=== PATIENT | female | born 1980 | race Caucasian/White ===

== ENCOUNTER 2022-10-12 15:14 | Emergency (ER) | payer MEDICAID ==
[2022-10-12 15:53] LABS: BASOPHILS # (AUTO) 0.1 10^3/uL (0.0-0.1); BASOPHILS % (AUTO) 0.7 %; EOSINOPHILS # (AUTO) 0.3 10^3/uL (0.0-0.7); EOSINOPHILS % (AUTO) 2.2 %; HCT - HEMATOCRIT 36.6 % (37.0-47.0); HGB - HEMOGLOBIN 11.8 g/dL (12.0-16.0); LYMPHOCYTES # (AUTO) 3.7 10^3/uL (1.5-3.5); LYMPHOCYTES % (AUTO) 30.2 %; MEAN CORPUSCULAR HEMOGLOBIN 29.9 pg (27.0-31.0); MEAN CORPUSCULAR HGB CONC 32.2 g/dL (32.0-36.0); MEAN CORPUSCULAR VOLUME 92.7 fL (81.0-99.0); MEAN PLATELET VOLUME 9.5 fL (7.9-10.8); MONOCYTES # (AUTO) 0.5 10^3/uL (0.0-1.0); MONOCYTES % (AUTO) 4.4 %; NEUTROPHILS # (AUTO) 7.6 10^3/uL (1.5-6.6); NEUTROPHILS % (AUTO) 62.2 %; PLT - PLATELET COUNT 435 10^3/uL (130-450); RED BLOOD COUNT 3.95 10^6/uL (4.20-5.40); RED CELL DISTRIBUTION WIDTH 13.2 % (12.0-15.0); WHITE BLOOD COUNT 12.2 x10^3/uL (4.8-10.8)
--- NOTE | 2022-10-12 16:02 | XRAY Report ---
PROCEDURE: Chest 1 View X-Ray INDICATIONS: Chest pain TECHNIQUE: One view of the chest was acquired. COMPARISON: None. FINDINGS: Surgical changes and devices: None. Lungs and pleura: No pleural effusions or pneumothorax. Lungs are clear. Mediastinum: Mediastinal contours appear normal. Heart size is normal. Bones and chest wall: No suspicious bony lesions. Overlying soft tissues appear unremarkable. IMPRESSION: No acute cardiopulmonary process. Reviewed by: Louie Meeks MD on 10/12/2022 3:01 PM MARITZA Approved by: Louie Meeks MD on 10/12/2022 3:01 PM AKMORALES Station ID: [id number]
[2022-10-12 16:06] LABS: ALBUMIN 4.4 g/dL (3.2-5.5); ALBUMIN/GLOBULIN RATIO 1.5 (1.0-2.2); BILIRUBIN,TOTAL 0.4 mg/dL (0.2-1.0); CALCIUM 9.1 mg/dL (8.5-10.3); CREATININE 0.6 mg/dL (0.4-1.0); POTASSIUM 3.4 mmol/L (3.5-5.0); TOTAL PROTEIN 7.4 g/dL (6.7-8.2)
--- NOTE | 2022-10-12 17:16 | ED Physician Documentation ---
History of Present Illness - Stated complaint Stated Complaint: HIGH BP - Chief complaint Chief Complaint: Cardiac - History obtained from History obtained from: Patient, Family - History of Present Illness Timing: Today Pain level max: 0 Pain level now: 0 - Additonal information Additional information: 42-year-old female recently moved here from [place]. Does not have a PCP. She states that she is out of her metoprolol, tizandine, lexapro and mobic, does not know doses or formulations. She states that she has a history of labile blood pressure. She states sometimes it is 80/60, other times it is in the 140s 150s 160s. She states she has history of tachyarrhythmia as well but does not know what. She does not have any chest pain, shortness of breath. She is not lightheaded or dizzy currently. She has had syncopal events in the past when her blood pressure drops low. She states that her blood pressure was low yesterday and her partner states that she did pass out for a few seconds. Patient denies any head injury. No neck or back pain. No nausea or vomiting. No palpitations. Denies any possibility of Review of Systems Constitutional: denies: Fever, Chills Cardiac: denies: Chest pain / pressure, Palpitations Respiratory: denies: Cough GI: denies: Nausea, Vomiting, Diarrhea Skin: denies: Rash Musculoskeletal: denies: Neck pain, Back pain PD PAST MEDICAL HISTORY - Past Medical History Past Medical History: Yes Cardiovascular: Other (labile BP) Psych: Anxiety Musculoskeletal: Fibromyalgia - Present Medications Home Medications: Ambulatory Orders Medication Instructions Recorded Confirmed Escitalopram [Lexapro] 10 mg PO DAILY #30 tablet 10/12/22 Meloxicam 15 mg PO DAILY #30 tab 10/12/22 Metoprolol Succinate [Toprol Xl] 25 mg PO DAILY #30 tablet 10/12/22 tiZANidine [Zanaflex] 4 mg PO Q8H PRN #90 tablet 10/12/22 - Allergies Allergies/Adverse Reactions: Allergies Allergy/AdvReac Type Severity Reaction Status Date / Time bee venom protein (honey bee) Allergy Anaphylaxis Verified 10/12/22 15:29 Sulfa (Sulfonamide Allergy Hives Verified 10/12/22 15:29 Antibiotics) - Living Situation Living Situation: reports: With family Living Arrangement: reports: At home - Social History Does the pt have substance abuse?: No - Family History Family history: reports: Non contributory PD ED PE NORMAL - Vitals Vital signs reviewed: Yes - General General: Alert and oriented X 3, No acute distress - HEENT HEENT: PERRL, Moist mucous membranes - Neck Neck: Supple, no meningeal sign, No JVD, No bruit - Cardiac Cardiac: RRR, Strong equal pulses - Respiratory Respiratory: No respiratory distress, Clear bilaterally - Abdomen Abdomen: Soft, Non tender, Non distended - Back Back: No spinal TTP - Derm Derm: Warm and dry, No rash - Extremities Extremities: Normal ROM s pain, No edema, No calf tenderness / cord - Neuro Neuro: Alert and oriented X 3 - Psych Psych: Normal mood, Normal affect Results - Vitals Vitals: Vital Signs - 24 hr 10/12/22 10/12/22 15:22 17:21 Temperature 36.2 C L Heart Rate 79 75 Respiratory 18 15 Rate Blood Pressure 130/99 H 119/92 H O2 Saturation 100 98 Oxygen O2 Source Room air - EKG (time done) 1534 EKG releavant findings:: EKG personally interpreted by author of this note. Relevant findings are: Rate: Rate (enter#) (72) Rhythm: NSR [place]: Normal Intervals: Normal [place] QRS: Normal Ischemia: Normal ST segments - Labs Labs: Laboratory Tests 10/12/22 10/12/22 10/12/22 15:50 15:50 15:50 WBC 12.2 H RBC 3.95 L Hgb 11.8 L Hct 36.6 L MCV 92.7 MCH 29.9 MCHC 32.2 RDW 13.2 Plt Count 435 MPV 9.5 Neut # (Auto) 7.6 H Lymph # (Auto) 3.[address] [facility] # (Auto) 0.5 Eos # (Auto) 0.3 Baso # (Auto) 0.1 Absolute Nucleated RBC 0.00 Nucleated RBC % 0.0 Sodium 142 Potassium 3.4 L Chloride 106 Carbon Dioxide 28 Anion Gap 8.0 BUN 15 Creatinine 0.6 Estimated GFR (MDRD) 110 Glucose 88 Calcium 9.1 Total Bilirubin 0.4 AST 19 ALT 19 Alkaline Phosphatase 49 Troponin I High Sens < 2.3 L Total Protein 7.4 Albumin 4.4 Globulin 3.0 Albumin/Globulin Ratio 1.5 Lipase 29 - Rads (name of study) cxr Relevant Findings:: Final report received, See rad report PD Medical Decision Making - ED course Complexity details: reviewed results, re-evaluated patient, considered differential (No ST elevation LA, no aortic dissection, no PE, no tension pneumothorax, no aortic aneurysm), d/w patient ED course: Patient presents to the emergency department with an episode of syncope yesterday that sounds like vasovagal syncope, she has passed out several times in the past. She is currently out of her metoprolol to prevent her tachyarrhythmia, she is also out of her Lexapro, Tizanidine and meloxicam. She is requesting refills. She was able to login to her prior [facility] medical record on her phone, I reviewed her chart to there and found the doses and formulations of these medications for the patient. I will refill these medications for her, she needs to follow-up closely with a local PCP. Would recommend that she print out her medical records from [facility] as well to take with her to her new PCP given her complicated medical history. No significant laboratory abnormalities today other than a mild leukocytosis. High-sensitivity troponin is negative. EKG, chest x-ray do not show any acute abnormalities. Telemetry here is without arrhythmia. Patient counseled regarding signs and symptoms for which I believe and urgent re-evaluation would be necessary. Patient with good understanding of and agreement to plan and is comfortable going home at this time This document was made in part using voice recognition software. While efforts are made to proofread this document, sound alike and grammatical errors may occur. No calf swelling, no chest pain, no PE, no evidence of DVT or PE Departure - Departure Disposition: 01 Home, Self Care Clinical Impression: Dizziness, Labile blood pressure, Medication refill Condition: Good Instructions: ED Dizziness UKO Follow-Up: [facility] [place] [Provider Group] [facility] [Provider Group] [facility] [Provider Group] Prescriptions: Escitalopram [Lexapro] 10 mg PO DAILY #30 tablet Meloxicam 15 mg PO DAILY #30 tab Metoprolol Succinate [Toprol Xl] 25 mg PO DAILY #30 tablet tiZANidine [Zanaflex] 4 mg PO Q8H PRN #90 tablet PRN Reason: muscle spasm Comments: [facility] also has an office [place]. I would recommend that you start trying to call primary care offices to see when you can get an appointment. You should try to obtain as many of your records from [facility] as well to take with you. Your prescriptions were sent to [facility] in [place]. Please return if you worsen. Forms: Activity restrictions Discharge Date/Time: 10/12/22 17:22
[2022-10-12 17:23] VITALS: BP 119/92
== END 2022-10-12 17:22 | disposition home or self-care (01) ==
LOC: ED 15:14
DX: R42 Dizziness and giddiness (principal); R09.89 Other specified symptoms and signs involving the circulatory and respiratory systems; Z76.0 Encounter for issue of repeat prescription; Z79.899 Other long term (current) drug therapy
CPT/HCPCS: 36415; 80053; 83690; 84484; 85025; 93005; 99284

== ENCOUNTER 2022-10-28 09:07 | Emergency (ER) | payer MEDICAID ==
[2022-10-28] MEDS ORDERED: SODIUM CHLORIDE 0.9% 1,000 ML IV STA (09:52)
[2022-10-28] MEDS ORDERED: PROCHLORPERAZINE 10 MG/2 ML VIAL IVP STA (09:52)
[2022-10-28] MEDS ORDERED: diphenhydrAMINE INJ 50 MG/ML VIAL IVP STA (09:52)
[2022-10-28] MEDS ORDERED: KETOROLAC 30 MG/ML VIAL IVP STA (09:52)
[2022-10-28] MEDS ORDERED: DEXAMETHASONE 10 MG/ML VIAL IVP STA (09:53)
[2022-10-28] MEDS ORDERED: MAGNESIUM SULFATE 2 GRAM 2 GM/50 ML BAG IV ONE (09:53)
--- NOTE | 2022-10-28 10:02 | ED Physician Documentation ---
PD HPI HEADACHE - Stated complaint Stated Complaint: HEADACHE/BLURRED VISION - Chief complaint Chief Complaint: Neuro - History obtained from History obtained from: Patient, Family - History of Present Illness Timing - onset: How many days ago (3) Timing - onset during: Rest Timing - duration: Days Timing - details: Abrupt onset, Still present Location: Left Quality: Throbbing Associated symptoms: Nausea, Vision changes. No: Fever, Stiff neck, Vomiting, Weakness, Numbness, Syncope, Seizure, Eye pain Improved by: Rest, Dark room, Quiet, Meds Worsened by: Noise, Moving Contributing factors: No: Anticoagulated, Possible carbon monoxide, Hypertension, Recent illness, Trauma Similar symptoms before: Diagnosis (migraine) Recently seen: Emergency Dept - Additional information Additional information: 42-year-old Mariia Turner has a history of fibromyalgia hypertension and tachycardia she also has a history of migraine headaches. She has a aura seen pins and lites and this occurred 3 days ago and she has had headaches since. She has a headache on the left side she has some vision loss in the left eye. She has had migraine rescue previously and she is recently moved here from [place]. She reports that she has recently been into the emergency department had her medications refilled for 30-day supply and has not had a follow-up with her primary yet. She is now out of her Abilify which she had not run out of previously. She takes 2 and half milligrams nightly. Review of Systems Constitutional: denies: Fever Eyes: reports: Decreased vision Ears: denies: Ear pain Nose: denies: Rhinorrhea / runny nose Throat: denies: Sore throat Cardiac: denies: Chest pain / pressure Respiratory: denies: Dyspnea, Cough GI: denies: Abdominal Pain : denies: Dysuria, Frequency PD PAST MEDICAL HISTORY - Past Medical History Cardiovascular: Other (labile BP) Psych: Anxiety Musculoskeletal: Fibromyalgia - Present Medications Home Medications: Ambulatory Orders Medication Instructions Recorded Confirmed Escitalopram [Lexapro] 10 mg PO DAILY #30 tablet 10/12/22 10/28/22 tiZANidine [Zanaflex] 4 mg PO Q8H PRN #90 tablet 10/12/22 10/28/22 ARIPiprazole [Abilify] 2.5 mg PO DAILY 10/28/22 10/28/22 ARIPiprazole [Abilify] 2.5 mg PO DAILY #20 tablet 10/28/22 Albuterol 2.5 mg INH Q4H PRN 10/28/22 10/28/22 Benzonatate [Tessalon] 100 mg PO TID PRN 10/28/22 10/28/22 Dicyclomine HCl 20 mg PO TID PRN 10/28/22 10/28/22 EPINEPHrine [Epinephrine] 0.3 mg IJ ONCE PRN #2 each 10/28/22 Fluticasone [Flonase] 1 sprays RAKEL DAILY 10/28/22 10/28/22 Fluticasone/Salmeterol [Advair 1 each IH DAILY 10/28/22 10/28/22 500-50 Diskus] Gabapentin [Neurontin] 800 mg PO TID 10/28/22 10/28/22 Lisinopril [Zestril] 10 mg PO DAILY 10/28/22 10/28/22 Meloxicam 15 mg PO DAILY 10/28/22 10/28/22 Metoprolol Succinate [Toprol Xl] 25 mg PO DAILY 10/28/22 10/28/22 Multivit-Min/Folic Acid/Biotin 1 each PO DAILY 10/28/22 10/28/22 [Women Multivit W-Biotin Gummy] Prazosin [Minipress] 3 mg PO QPM 10/28/22 10/28/22 Sumatriptan Succinate [Imitrex] 100 mg PO PRN PRN 10/28/22 10/28/22 Trazodone HCl 100 mg PO HS PRN 10/28/22 10/28/22 diphenhydrAMINE [Benadryl] 25 mg PO Q4-6H PRN 10/28/22 10/28/22 hydrOXYzine HCL [Hydroxyzine HCl] 25 mg PO TID PRN 10/28/22 10/28/22 - Allergies Allergies/Adverse Reactions: Allergies Allergy/AdvReac Type Severity Reaction Status Date / Time bee venom protein (honey bee) Allergy Anaphylaxis Verified 10/28/22 09:23 Sulfa (Sulfonamide Allergy Hives Verified 10/28/22 09:23 Antibiotics) - Social History Does the pt have substance abuse?: No PD ED PE NORMAL - Vitals Vital signs reviewed: Yes (normal ) - General General: Alert and oriented X 3, No acute distress, Well developed/nourished - HEENT HEENT: Atraumatic, PERRL, EOMI - Neck Neck: Supple, no meningeal sign, No bony TTP - Cardiac Cardiac: RRR, No murmur - Respiratory Respiratory: No respiratory distress, Clear bilaterally - Abdomen Abdomen: Soft, Non tender - Back Back: No CVA TTP, No spinal TTP - Derm Derm: Normal color, Warm and dry, No rash - Extremities Extremities: No deformity, No edema - Neuro Neuro: Alert and oriented X 3, public relations account executive 2-12 intact, No motor deficit, No sensory deficit, Normal speech Eye Opening: Spontaneous Motor: Obeys Commands Verbal: Oriented GCS Score: 15 - Psych Psych: Normal mood, Normal affect Results - Vitals Vitals: Vital Signs - 24 hr 10/28/22 10/28/22 09:25 10:38 Temperature 36.4 C L Heart Rate 85 54 L Respiratory 18 12 Rate Blood Pressure 110/75 110/83 H O2 Saturation 97 99 Oxygen O2 Source Room air PD Medical Decision Making - ED course Complexity details: considered differential, d/w patient, d/w family ED course: 4-year-old female reports the emergency department with a migraine headache with aura. She has had migraine rescue previously and we today are providing a cocktail with a liter of saline 10 mg of Compazine and 25 mg of Benadryl 10 mg of dexamethasone 30 mg of Toradol and 2 g of magnesium. Departure - Departure Disposition: 01 Home, Self Care Clinical Impression: Migraine Qualifiers: Migraine type: with aura Status migrainosus presence: without status migrainosus Intractability: not intractable Qualified Code(s): G43.109 - Migraine with aura, not intractable, without status migrainosus Condition: Stable Instructions: ED Headache Migraine Follow-Up: [facility] [place] [Provider Group] Prescriptions: ARIPiprazole [Abilify] 2.5 mg PO DAILY #20 tablet EPINEPHrine [Epinephrine] 0.3 mg IJ ONCE PRN #2 each PRN Reason: bee sting Comments: Agustina, today looks like your migraine headache responded to the migraine cocktail. I have E scribed some Abilify and the EpiPen to [facility] [place]. Forms: Activity restrictions
[2022-10-28 12:00] VITALS: BP 105/70
== END 2022-10-28 12:09 | disposition home or self-care (01) ==
LOC: ED 09:07
DX: G43.509 Persistent migraine aura without cerebral infarction, not intractable, without status migrainosus (principal); I10 Essential (primary) hypertension; Z79.899 Other long term (current) drug therapy; Z79.51 Long term (current) use of inhaled steroids
CPT/HCPCS: 96365; 96375; 99283; 99284; J1200

== ENCOUNTER 2023-01-09 07:43 | Outpatient (CLI) | payer MEDICAID ==
[2023-01-09 14:48] LABS: BASOPHILS # (AUTO) 0.1 10^3/uL (0.0-0.1); EOSINOPHILS # (AUTO) 0.4 10^3/uL (0.0-0.7); EOSINOPHILS % (AUTO) 3.2 %; HCT - HEMATOCRIT 39.7 % (37.0-47.0); HGB - HEMOGLOBIN 12.8 g/dL (12.0-16.0); LYMPHOCYTES # (AUTO) 3.2 10^3/uL (1.5-3.5); LYMPHOCYTES % (AUTO) 29.2 %; MEAN CORPUSCULAR HEMOGLOBIN 30.9 pg (27.0-31.0); MEAN CORPUSCULAR HGB CONC 32.2 g/dL (32.0-36.0); MEAN CORPUSCULAR VOLUME 95.9 fL (81.0-99.0); MONOCYTES # (AUTO) 0.6 10^3/uL (0.0-1.0); MONOCYTES % (AUTO) 5.5 %; NEUTROPHILS # (AUTO) 6.8 10^3/uL (1.5-6.6); NEUTROPHILS % (AUTO) 60.9 %; PLT - PLATELET COUNT 430 10^3/uL (130-450); RED BLOOD COUNT 4.14 10^6/uL (4.20-5.40); RED CELL DISTRIBUTION WIDTH 13.1 % (12.0-15.0); WHITE BLOOD COUNT 11.1 x10^3/uL (4.8-10.8)
[2023-01-09 15:23] LABS: THYROID STIMULATING HORMONE 2.17 uIU/mL (0.34-5.60)
[2023-01-09 15:25] LABS: ALBUMIN 4.5 g/dL (3.2-5.5); ALBUMIN/GLOBULIN RATIO 1.9 (1.0-2.2); ALKALINE PHOSPHATASE 56 IU/L (42-121); ALT ALANINE AMINOTRANSFERASE 14 IU/L (10-60); AST ASPARTATE AMINOTRANSFERASE 17 IU/L (10-42); BILIRUBIN,TOTAL 0.3 mg/dL (0.2-1.0); BUN - BLOOD UREA NITROGEN 14 mg/dL (6-20); CALCIUM 9.9 mg/dL (8.5-10.3); CARBON DIOXIDE - CO2 30 mmol/L (21-32); CHLORIDE 102 mmol/L (101-111); CHOL/HDL RATIO 2.6 (<4.4); CHOLESTEROL 219 mg/dL; CREATININE 0.6 mg/dL (0.6-1.3); GFR - MDRD 110 (>89); GLUCOSE 90 mg/dL (74-104); HDL CHOLESTEROL 83 mg/dL; LDL CHOLESTEROL,CALCULATED 106 mg/dL; LDL/HDL RATIO 1.3 (<4.4); POTASSIUM 4.3 mmol/L (3.5-4.5); SODIUM 138 mmol/L (135-145); TOTAL PROTEIN 6.9 g/dL (6.4-8.9); TRIGLYCERIDES 148 mg/dL (48-352); VLDL CHOLESTEROL 30 mg/dL
[2023-01-09 16:00] LABS: ESTIMATED AVERAGE GLUCOSE 105 mg/dL (70-100); HEMOGLOBIN A1c% 5.3 % (4.27-6.07)
== END 2023-01-09 07:44 | disposition home or self-care (01) ==
LOC: LAB.S 07:43
PROVIDERS: ATTEND Internal Medicine
DX: Z79.899 Other long term (current) drug therapy (principal); F41.9 Anxiety disorder, unspecified; F32.A Depression, unspecified
CPT/HCPCS: 36415; 80053; 80061; 83036; 83721; 84443; 85025

== ENCOUNTER 2023-03-03 22:10 | Emergency (ER) | payer MEDICAID ==
[2023-03-03 22:37] LABS: GLUCOSE, URINE (UA) NEGATIVE (NEGATIVE); KETONES,URINE (UA) NEGATIVE (NEGATIVE); LEUKOCYTE ESTERASE, URINE NEGATIVE (NEGATIVE); NITRITE,URINE NEGATIVE (NEGATIVE); OCCULT BLOOD,URINE NEGATIVE (NEGATIVE); PH,URINE 5.5 PH (5.0-7.5); PROTEIN,URINE TRACE mg/dL (NEGATIVE); UROBILINOGEN,URINE 0.2 (NORMAL) E.U./dL (NORMAL)
[2023-03-03 22:40] LABS: BILIRUBIN,URINE NEGATIVE (NEGATIVE); CLARITY,URINE CLEAR (CLEAR); HCG UR QUAL NEGATIVE; ICTOTEST,URINE NEGATIVE
[2023-03-03 22:46] LABS: BASOPHILS # (AUTO) 0.1 10^3/uL (0.0-0.1); BASOPHILS % (AUTO) 0.9 %; EOSINOPHILS # (AUTO) 0.2 10^3/uL (0.0-0.7); EOSINOPHILS % (AUTO) 2.5 %; HCT - HEMATOCRIT 37.6 % (37.0-47.0); HGB - HEMOGLOBIN 12.7 g/dL (12.0-16.0); LYMPHOCYTES # (AUTO) 3.2 10^3/uL (1.5-3.5); LYMPHOCYTES % (AUTO) 34.4 %; MEAN CORPUSCULAR HEMOGLOBIN 30.3 pg (27.0-31.0); MEAN CORPUSCULAR HGB CONC 33.8 g/dL (32.0-36.0); MEAN CORPUSCULAR VOLUME 89.7 fL (81.0-99.0); MEAN PLATELET VOLUME 9.6 fL (7.9-10.8); MONOCYTES # (AUTO) 0.5 10^3/uL (0.0-1.0); MONOCYTES % (AUTO) 5.4 %; NEUTROPHILS # (AUTO) 5.3 10^3/uL (1.5-6.6); NEUTROPHILS % (AUTO) 56.6 %; PLT - PLATELET COUNT 403 10^3/uL (130-450); RED BLOOD COUNT 4.19 10^6/uL (4.20-5.40); RED CELL DISTRIBUTION WIDTH 12.4 % (12.0-15.0); WHITE BLOOD COUNT 9.3 x10^3/uL (4.8-10.8)
[2023-03-03 23:05] LABS: ALBUMIN 4.5 g/dL (3.2-5.5); ALBUMIN/GLOBULIN RATIO 1.8 (1.0-2.2); BILIRUBIN,TOTAL 0.3 mg/dL (0.2-1.0); CALCIUM 9.4 mg/dL (8.5-10.3); CREATININE 0.7 mg/dL (0.6-1.3); POTASSIUM 3.8 mmol/L (3.5-4.5)
--- NOTE | 2023-03-04 01:17 | ED Physician Documentation ---
PD HPI ABD PAIN - Stated complaint Stated Complaint: ABD PX - Chief complaint Chief Complaint: Abd Pain - History obtained from History obtained from: Patient - Additional information Additional information: HPI from patient. Patient c/o right pelvic and RLQ abdominal pain since yesterday, onset at rest, associated with nausea but no vomiting. She feels the pain is similar to previous ovarian cysts; she says she had to have surgery to address a 9cm left ovarian cyst in the past. Denies fevers. There are no ameliorating factors. Pain is exacerbated with palpation. Review of Systems Constitutional: denies: Fever, Chills, Sweats Cardiac: reports: Reviewed and negative Respiratory: reports: Reviewed and negative GI: reports: Abdominal Pain. denies: Nausea, Vomiting : denies: Dysuria, Frequency, Hematuria, Now EGA PD PAST MEDICAL HISTORY - Past Medical History Cardiovascular: Other (labile BP) Psych: Anxiety Musculoskeletal: Fibromyalgia - Present Medications Home Medications: Ambulatory Orders Medication Instructions Recorded Confirmed Escitalopram [Lexapro] 10 mg PO DAILY #30 tablet 10/12/22 10/28/22 tiZANidine [Zanaflex] 4 mg PO Q8H PRN #90 tablet 10/12/22 10/28/22 ARIPiprazole [Abilify] 2.5 mg PO DAILY 10/28/22 10/28/22 ARIPiprazole [Abilify] 2.5 mg PO DAILY #20 tablet 10/28/22 Albuterol 2.5 mg INH Q4H PRN 10/28/22 10/28/22 Benzonatate [Tessalon] 100 mg PO TID PRN 10/28/22 10/28/22 Dicyclomine HCl 20 mg PO TID PRN 10/28/22 10/28/22 EPINEPHrine [Epinephrine] 0.3 mg IJ ONCE PRN #2 each 10/28/22 Fluticasone [Flonase] 1 sprays RAKEL DAILY 10/28/22 10/28/22 Fluticasone/Salmeterol [Advair 1 each IH DAILY 10/28/22 10/28/22 500-50 Diskus] Gabapentin [Neurontin] 800 mg PO TID 10/28/22 10/28/22 Lisinopril [Zestril] 10 mg PO DAILY 10/28/22 10/28/22 Meloxicam 15 mg PO DAILY 10/28/22 10/28/22 Metoprolol Succinate [Toprol Xl] 25 mg PO DAILY 10/28/22 10/28/22 Multivit-Min/Folic Acid/Biotin 1 each PO DAILY 10/28/22 10/28/22 [Women Multivit W-Biotin Gummy] Prazosin [Minipress] 3 mg PO QPM 10/28/22 10/28/22 Sumatriptan Succinate [Imitrex] 100 mg PO PRN PRN 10/28/22 10/28/22 Trazodone HCl 100 mg PO HS PRN 10/28/22 10/28/22 diphenhydrAMINE [Benadryl] 25 mg PO Q4-6H PRN 10/28/22 10/28/22 hydrOXYzine HCL [Hydroxyzine HCl] 25 mg PO TID PRN 10/28/22 10/28/22 Ondansetron Odt [Zofran Odt] 4 mg TL Q6H PRN #14 tablet 03/04/23 oxyCODONE [Roxicodone] 5 - 10 mg PO Q6H PRN #14 tablet 03/04/23 - Allergies Allergies/Adverse Reactions: Allergies Allergy/AdvReac Type Severity Reaction Status Date / Time bee venom protein (honey bee) Allergy Anaphylaxis Verified 03/03/23 22:21 Sulfa (Sulfonamide Allergy Hives Verified 03/03/23 22:21 Antibiotics) - Social History Does the pt have substance abuse?: No PD ED PE NORMAL - Vitals Vital signs reviewed: Yes - General General: Alert and oriented X 3, No acute distress, Well developed/nourished - Cardiac Cardiac: RRR, No murmur - Respiratory Respiratory: No respiratory distress, Clear bilaterally - Abdomen Abdomen: Soft, Non distended, Other (mild/moderate TTP periumbilicus, right abdomen (RLQ>RUQ) without rebound or guarding) - Back Back: No CVA TTP Results - Vitals Vitals: Oxygen O2 Source Room air - Labs Labs: Laboratory Tests 03/03/23 03/03/23 03/03/23 22:30 22:41 22:41 WBC 9.3 RBC 4.19 L Hgb 12.7 Hct 37.6 MCV 89.7 MCH 30.3 MCHC 33.8 RDW 12.4 Plt Count 403 MPV 9.6 Neut # (Auto) 5.3 Lymph # (Auto) 3.2 [place] # (Auto) 0.5 Eos # (Auto) 0.2 Baso # (Auto) 0.1 Absolute Nucleated RBC 0.00 Nucleated RBC % 0.0 Sodium 136 Potassium 3.8 Chloride 103 Carbon Dioxide 27 Anion Gap 6.0 BUN 15 Creatinine 0.7 Estimated GFR (MDRD) 92 Glucose 109 H Calcium 9.4 Total Bilirubin 0.3 AST 14 ALT 11 Alkaline Phosphatase 50 Total Protein 7.0 Albumin 4.5 Globulin 2.5 Albumin/Globulin Ratio 1.8 Lipase 19 Urine Color YELLOW Urine Clarity CLEAR Urine pH 5.5 Ur Specific [place] >=1.030 H Urine Protein TRACE Urine Glucose (UA) NEGATIVE Urine Ketones NEGATIVE Urine Occult Blood NEGATIVE Urine Nitrite NEGATIVE Urine Bilirubin NEGATIVE Urine Urobilinogen 0.2 (NORMAL) Ur Leukocyte Esterase NEGATIVE Ur Microscopic Review NOT INDICATED Urine Culture Comments NOT INDICATED Urine HCG, Qual NEGATIVE - Rads (name of study) CT A/P Relevant Findings:: Prelim report reviewed, See rad report PD Medical Decision Making - ED course Complexity details: reviewed results, re-evaluated patient, considered differential, d/w patient ED course: Given 4mg IV morphine and 4mg IV zofran. Normal CBC, ER abdominal panel (glucose flagged high at 109). UA normal except concentrated (SG >1.030). CT A/P does not provide a clear etiology of symptoms. There is a 1.8 cm x 1.9 cm complex cystic lesion in right adnexa likely representing hemorrhagic ovarian follicle. This could account for, or be contributing to, her symptoms. There is also periortic fat stranding; radiologist includes mesenteritis, vasculitis on differential for this appearance. Also noted are right lower quadrant mesenteric lymphadenopathy, raising possibility of mesenteric adenitis. Given her reassuring blood test results and lack of concerning findings on exam (afebrile, no peritoneal signs), patient is safe and appropriate for discharge at this time. We discussed her test results including the unusual findings on CT which would benefit from close follow up. I advised her to contact her PCP in the morning and arrange for next available appointment. Return precautions were carefully reviewed and an emphasis was placed on having a low threshold to return to ED. Prior to d/c, she is given 1mg IV dilaudid for residual abdominal pain, and rx for zofran and oxycodone e-prescribed to her pharmacy of choice. I am prescribing a short course of short-acting opioid pain medication for this patient. I have reviewed the patients MASTER CERTIFIED RV TECHNICIAN and no concerning findings were noted. I have discussed that the opioids are for short term therapy only, and will not be refilled from the ED. Departure - Departure Disposition: 01 Home, Self Care Clinical Impression: Cyst of ovary Qualifiers: Laterality: right Qualified Code(s): N83.201 - Unspecified ovarian cyst, right side Abdominal pain Qualifiers: Abdominal location: generalized Qualified Code(s): R10.84 - Generalized abdominal pain Condition: Good Instructions: ED Cyst Ovarian, ED Adenitis Mesenteric Follow-Up: Maida Greenwood MD [Primary Care Provider] - Prescriptions: oxyCODONE [Roxicodone] 5 - 10 mg PO Q6H PRN #14 tablet PRN Reason: Pain >8 Ondansetron Odt [Zofran Odt] 4 mg TL Q6H PRN #14 tablet PRN Reason: Nausea / Vomiting Comments: There were no concerning or diagnostic findings on tonight's blood tests, urinalysis. The CT scan of your abdomen and pelvis does show a right-sided complex cyst in your adnexa (right side of your pelvis). This could represent a bleeding ovarian cyst. The lesion is small (1.8 cm x 1.9 cm) and will likely resolve without needing any specific treatment. However, it is important that you mention this finding to your primary care provider and/or your art museum aide; often, a complex cyst (as opposed to a simple cyst, which has a different appearance on CAT scan) requires further study such as an ultrasound to ensure that it does not represent a concerning lesion such as malignancy. As we discussed, the radiologist also notes enlarged lymph nodes in your abdomen, specifically the right lower quadrant, As well as some subtle findings that suggest focal inflammation of the mesentery. These two findings together could be due to mesenteric adenitis. I have included discharge sheets on this diagnosis within this discharge packet. Mesenteric adenitis is typically a painful though benign diagnosis that resolves without specific treatment within a few days. Realize that this is merely a possible diagnosis based on the CT findings; following up with your primary care provider within the next week can help determine if further testing is needed to look into other possible diagnoses. I have electronically submitted prescriptions for oxycodone (narcotic/opiate pain medication) and ondansetron (anti-nausea medication) to the [facility] in [place]. I am prescribing a short course of narcotic pain medication for you. These are potentially dangerous and addictive medications that should be used carefully. These medications may constipate you. Take an [id number] stool softener (docusate) twice daily with plenty of water while taking these medications. If you go 24 hours without a bowel movement, take [id number] miralax, per package instructions. Do not drink or drive while taking these medications. If you received narcotic or sedating medications while in the emergency department, do not drive for 24 hours. Store this medication in a safe, secure place and out of reach of children. It is a violation of federal law to give or sell this medication to another person or to use in a manner other than prescribed. The ED will not refill narcotic prescriptions, including prescriptions lost or stolen. To dispose of unwanted medications: 1. [facility] at [address] [place] [address] in [place] has a medication drop box. They accept prescription medications (in pill form) Thursday through Thursday 9:00 a.m. to 5:00 p.m. 2. The [facility] Department accepts prescription medications (in pill form only) for disposal year round. Call for more information. 3. Contact the [facility] for the next [facility] sponsored prescription drug collection event. , [phone], or [phone]; Forms: Activity restrictions Discharge Date/Time: 03/04/23 06:09
[2023-03-04] MEDS ORDERED: ONDANSETRON 4 MG/2 ML VIAL IVP STA (01:34)
[2023-03-04] MEDS ORDERED: MORPHINE 2 MG/ML CARPUJECT IVP STA (01:34)
[2023-03-04] MEDS ORDERED: iohexoL-300 100 ML VIAL IVP ONE (03:16)
[2023-03-04] MEDS ORDERED: HYDROmorphone 1 MG/ML CARPUJECT IVP STA (05:28)
[2023-03-04 05:45] VITALS: BP 122/80; O2SAT 98
--- NOTE | 2023-03-04 08:04 | CT Report ---
PROCEDURE: ABDOMEN/PELVIS W INDICATIONS: diffuse abd. pain, predominantly right-sided CONTRAST: Omni 300 100ml TECHNIQUE: After the administration of intravenous contrast, 5 mm thick sections acquired from the diaphragms to the symphysis. 5 mm thick coronal and sagittal reformats were acquired. For radiation dose reducti on, the following was used: automated exposure control, adjustment of mA and/or kV according to melisa ent size. COMPARISON: None FINDINGS: Image quality: Excellent. Lung bases and heart: Unremarkable. Liver: No solid mass. Gallbladder and biliary tree: No radiopaque stones or wall thickening. No biliary dilation. Spleen: No splenomegaly. Pancreas: No pancreatic ductal dilation. Adrenals: No adrenal nodule. Kidneys and ureters: No hydronephrosis. No renal cystic lesion which requires follow up. No solid mas s. Bowel and peritoneum: No bowel distension. No pathologic free fluid. Lymph nodes: No central or retroperitoneal adenopathy. A few scattered mesenteric lymph nodes more no table for number rather than size noted in the right lower quadrant. These are likely reactive in justine ology. Vessels: No infrarenal aortic aneurysm. There is mild fat stranding surrounding the distal abdominal aorta and aortic bifurcation. PELVIS Reproductive organs: Unremarkable. Bladder: No abnormal wall thickening, accounting for underdistension. Pelvic lymph nodes: No pelvic adenopathy by size criteria. Bones: No aggressive osseous abnormality. No acute compression fracture. Other: No significant ventral or inguinal hernia. IMPRESSION: Mild stranding of the periaortic fat which is nonspecific and may be related to mesenteritis or vascu litis. A few reactive appearing right lower quadrant mesenteric lymph nodes. Recommend clinical corre lation. Otherwise, no acute abnormalities identified in the abdomen or pelvis. Findings are concordant with preliminary interpretation provided by [facility]. Reviewed by: Velasquez Gudino MD on 03/04/2023 8:02 AM PDT Approved by: Velasquez Gudino MD on 03/04/2023 8:02 AM PDT Station ID: [id number]
== END 2023-03-04 06:09 | disposition home or self-care (01) ==
LOC: ED 22:10
DX: N83.201 Unspecified ovarian cyst, right side (principal); R10.84 Generalized abdominal pain
CPT/HCPCS: 36415; 74177; 80053; 81003; 81025; 83690; 85025; 96374; 96375; 99284; J1170; Q9967; 81001; 87086

== ENCOUNTER 2023-05-17 13:13 | Emergency (ER) | payer MEDICAID ==
[2023-05-17 13:40] LABS: BILIRUBIN,URINE NEGATIVE (NEGATIVE); GLUCOSE, URINE (UA) NEGATIVE (NEGATIVE); KETONES,URINE (UA) NEGATIVE (NEGATIVE); LEUKOCYTE ESTERASE, URINE NEGATIVE (NEGATIVE); NITRITE,URINE NEGATIVE (NEGATIVE); OCCULT BLOOD,URINE NEGATIVE (NEGATIVE); PROTEIN,URINE NEGATIVE (NEGATIVE); UROBILINOGEN,URINE 0.2 (NORMAL) E.U./dL (NORMAL)
[2023-05-17 13:41] LABS: BASOPHILS # (AUTO) 0.1 10^3/uL (0.0-0.1); EOSINOPHILS # (AUTO) 0.3 10^3/uL (0.0-0.7); EOSINOPHILS % (AUTO) 2.4 %; HCT - HEMATOCRIT 35.3 % (37.0-47.0); HGB - HEMOGLOBIN 12.1 g/dL (12.0-16.0); LYMPHOCYTES # (AUTO) 3.8 10^3/uL (1.5-3.5); LYMPHOCYTES % (AUTO) 30.6 %; MEAN CORPUSCULAR HEMOGLOBIN 31.8 pg (27.0-31.0); MEAN CORPUSCULAR HGB CONC 34.3 g/dL (32.0-36.0); MEAN CORPUSCULAR VOLUME 92.7 fL (81.0-99.0); MEAN PLATELET VOLUME 9.6 fL (7.9-10.8); MONOCYTES # (AUTO) 0.7 10^3/uL (0.0-1.0); MONOCYTES % (AUTO) 5.4 %; NEUTROPHILS # (AUTO) 7.6 10^3/uL (1.5-6.6); NEUTROPHILS % (AUTO) 60.4 %; PLT - PLATELET COUNT 411 10^3/uL (130-450); RED BLOOD COUNT 3.81 10^6/uL (4.20-5.40); RED CELL DISTRIBUTION WIDTH 12.9 % (12.0-15.0); WHITE BLOOD COUNT 12.5 x10^3/uL (4.8-10.8)
[2023-05-17 13:42] LABS: CLARITY,URINE CLEAR (CLEAR); HCG UR QUAL NEGATIVE
[2023-05-17 13:56] LABS: ALBUMIN 4.4 g/dL (3.2-5.5); ALBUMIN/GLOBULIN RATIO 1.7 (1.0-2.2); BILIRUBIN,TOTAL 0.2 mg/dL (0.2-1.0); CALCIUM 9.6 mg/dL (8.5-10.3); CREATININE 0.7 mg/dL (0.6-1.3); POTASSIUM 4.4 mmol/L (3.5-4.5)
[2023-05-17] MEDS ORDERED: ONDANSETRON 4 MG/2 ML VIAL IVP STA (14:44)
--- NOTE | 2023-05-17 14:48 | ED Physician Documentation ---
PD HPI ABD PAIN - Stated complaint Stated Complaint: RT SIDE PX - Chief complaint Chief Complaint: Abd Pain - History obtained from History obtained from: Patient, Family - History of Present Illness Timing - onset: How many days ago (4) Timing - duration: Days (4) Timing - details: Gradual onset, Still present Quality: Cramping, Aching, Sharp, Pain Location: RUQ Radiation: Right flank Improved by: Laying still Worsened by: Eating, Moving, Breathing, Position, Palpation Associated symptoms: Nausea. No: Vomiting Similar symptoms before: Diagnosis (ovarian cyst) Recently seen: Emergency Dept - Additional information Additional information: 43-year-old Mariia Romano has developed pain in the right upper quadrant abdominal pain radiating to her right flank. She has pain with movement, palpation of the area and with deep breathing. She has some mild nausea associated as well. She has had similar symptoms previously and was diagnosed with a ovarian cyst. She feels that over the past 4 days this pain is worse after eating and has been persistent. Review of Systems Constitutional: denies: Fever Ears: denies: Ear pain Nose: denies: Congestion Throat: denies: Sore throat Cardiac: denies: Chest pain / pressure Respiratory: denies: Dyspnea, Cough GI: reports: Abdominal Pain, Nausea. denies: Vomiting, Constipation, Diarrhea : denies: Dysuria, Frequency Skin: denies: Rash Musculoskeletal: denies: Neck pain, Back pain, Extremity pain Neurologic: denies: Generalized weakness, Focal weakness, Numbness PD PAST MEDICAL HISTORY - Past Medical History Past Medical History: Yes Cardiovascular: Hypertension, Other Respiratory: Asthma Neuro: None Endocrine/Autoimmune: None GI: None BEAMSTER: None : None HEENT: None Psych: Anxiety Musculoskeletal: Fibromyalgia Derm: None - Past Surgical History Past Surgical History: Yes /BEAMSTER: section, Other - Present Medications Home Medications: Ambulatory Orders Medication Instructions Recorded Confirmed Escitalopram [Lexapro] 10 mg PO DAILY #30 tablet 10/12/22 05/17/23 tiZANidine [Zanaflex] 4 mg PO Q8H PRN #90 tablet 10/12/22 05/17/23 ARIPiprazole [Abilify] 2.5 mg PO DAILY #20 tablet 10/28/22 05/17/23 Albuterol 2.5 mg INH Q4H PRN 10/28/22 05/17/23 Benzonatate [Tessalon] 100 mg PO TID PRN 10/28/22 05/17/23 Dicyclomine HCl 20 mg PO TID PRN 10/28/22 05/17/23 EPINEPHrine [Epinephrine] 0.3 mg IJ ONCE PRN #2 each 10/28/22 05/17/23 Fluticasone [Flonase] 1 sprays RAKEL DAILY PRN 10/28/22 05/17/23 Fluticasone/Salmeterol [Advair 1 each IH DAILY 10/28/22 05/17/23 500-50 Diskus] Gabapentin [Neurontin] 800 mg PO TID 10/28/22 05/17/23 Lisinopril [Zestril] 10 mg PO DAILY 10/28/22 05/17/23 Meloxicam 15 mg PO DAILY 10/28/22 05/17/23 Metoprolol Succinate [Toprol Xl] 25 mg PO DAILY 10/28/22 05/17/23 Multivit-Min/Folic Acid/Biotin 1 each PO DAILY 10/28/22 05/17/23 [Women Multivit W-Biotin Gummy] Prazosin [Minipress] 3 mg PO QPM 10/28/22 05/17/23 Sumatriptan Succinate [Imitrex] 100 mg PO PRN PRN 10/28/22 05/17/23 Trazodone HCl 100 mg PO HS PRN 10/28/22 05/17/23 diphenhydrAMINE [Benadryl] 25 mg PO Q4-6H PRN 10/28/22 05/17/23 hydrOXYzine HCL [Hydroxyzine HCl] 25 mg PO TID PRN 10/28/22 05/17/23 Ondansetron Odt [Zofran Odt] 4 mg TL Q6H PRN #14 tablet 03/04/23 05/17/23 Empagliflozin [Jardiance] 10 mg PO DAILY 05/17/23 05/17/23 Methylphenidate [Ritalin] 15 mg PO DAILY 05/17/23 05/17/23 Oxycodone HCl/Acetaminophen 1 - 2 each PO Q6H PRN #14 tablet 05/17/23 [Percocet 5-325 mg Tablet] - Allergies Allergies/Adverse Reactions: Allergies Allergy/AdvReac Type Severity Reaction Status Date / Time bee venom protein (honey bee) Allergy Anaphylaxis Verified 05/17/23 13:16 Sulfa (Sulfonamide Allergy Hives Verified 05/17/23 13:16 Antibiotics) - Social History Does the pt smoke?: No Smoking Status: Never smoker Does the pt drink ETOH?: No Does the pt have substance abuse?: No - Immunizations Immunizations are current?: Yes - POLST Patient has POLST: No PD ED PE NORMAL - Vitals Vital signs reviewed: Yes (hypertensive mild ) - General General: Alert and oriented X 3, No acute distress, Well developed/nourished - HEENT HEENT: Atraumatic, PERRL, EOMI - Neck Neck: Supple, no meningeal sign, No bony TTP - Cardiac Cardiac: RRR, No murmur - Respiratory Respiratory: No respiratory distress, Clear bilaterally - Abdomen Abdomen: Normal bowel sounds, Soft, No organomegaly, Other (There is RUQ tenderness to palpation and placement of the hand over the RUQ with deep breathing arrests the breathing. With POCUS there is a GB present with shadowing stones. It is sonographically tender and there is rim of fluid around the gallbladder. 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, No motor deficit, No sensory deficit, Normal speech Eye Opening: Spontaneous Motor: Obeys Commands Verbal: Oriented GCS Score: 15 - Psych Psych: Normal mood, Normal affect Results - Vitals Vitals: Vital Signs - 24 hr 05/17/23 05/17/23 13:16 16:09 Temperature 36.8 C 36.4 C L Heart Rate 76 73 Respiratory 18 16 Rate Blood Pressure 138/81 H 149/93 H O2 Saturation 99 97 Oxygen O2 Source Room air - Labs Labs: Laboratory Tests 05/17/23 05/17/23 05/17/23 13:26 13:33 13:33 WBC 12.5 H RBC 3.81 L Hgb 12.1 Hct 35.3 L MCV 92.7 MCH 31.8 H MCHC 34.3 RDW 12.9 Plt Count 411 MPV 9.6 Neut # (Auto) 7.6 H Lymph # (Auto) 3.8 H [place] # (Auto) 0.7 Eos # (Auto) 0.3 Baso # (Auto) 0.1 Absolute Nucleated RBC 0.00 Nucleated RBC % 0.0 Sodium 136 Potassium 4.4 Chloride 102 Carbon Dioxide 27 Anion Gap 7.0 BUN 15 Creatinine 0.7 Estimated GFR (MDRD) 91 Glucose 90 Calcium 9.6 Total Bilirubin 0.2 AST 15 ALT 13 Alkaline Phosphatase 53 Total Protein 7.0 Albumin 4.4 Globulin 2.6 Albumin/Globulin Ratio 1.7 Lipase 41 Urine Color YELLOW Urine Clarity CLEAR Urine pH 6.0 Ur Specific [place] <=1.005 Urine Protein NEGATIVE Urine Glucose (UA) NEGATIVE Urine Ketones NEGATIVE Urine Occult Blood NEGATIVE Urine Nitrite NEGATIVE Urine Bilirubin NEGATIVE Urine Urobilinogen 0.2 (NORMAL) Ur Leukocyte Esterase NEGATIVE Ur Microscopic Review NOT INDICATED Urine Culture Comments NOT INDICATED Urine HCG, Qual NEGATIVE - Rads (name of study) abd U/S Relevant Findings:: Prelim report reviewed (Impression: Hepatic steatosis. Lobular contour of the right kidney with possible mass, consider dedicated follow-up CT versus MRI.), EMP independent interpretation of test, See rad report Procedures - Bedside sono Bedside sono by EMP: With use of POCUS the gallbladder is imaged there are obvious shadowing stones in the gallbladder. The GB is sonographically tender. I believe there is a thin rim of fluid around the gallbladder as well. PD Medical Decision Making - ED course Complexity details: reviewed old records, reviewed results, re-evaluated patient, considered differential, d/w patient, d/w family Reviewed Lab Results: We reviewed a complete blood count showing an elevated white blood cell count at 12.5 a normal hemoglobin hematocrit and platelets chemistries were unremarkable with normal electrolytes normal kidney and liver function normal glucose and a urinalysis similarly negative hCG negative. In the juxtaposition of pain and elevated white blood cell count is possible. ED course: 43-year-old Aliya no presents to the emergency department today with right upper quadrant abdominal pain she did have a positive Green[place] sign and I placed the bedside ultrasound on her abdomen when she arrived to the emergency department and thought that what I was seeing were shadowing stones within the gallbladder. The gallbladder was sonographically tender. I even thought I saw a rim of fluid around the gallbladder. Formal ultrasound evaluation did not demonstrate this. The gallbladder looked unremarkable. There is some question about the right kidney and a potential mass and I reviewed the patient's CT scan from her previous visit and did not see evidence of a mass. There is a request from the radiologist for dedicated CT or MR for evaluation of the right kidney. We do not have ability to do the MRI today.I did not find a life-threatening condition for the patient's pain on evaluation today. We were able to treat the patient's pain with pain reliever and she continues to have some pain despite this. Today we will provide her with some temporary pain relief she has had resolution of this previously over a several day period of time. I will have her follow-up with her primary for further evaluation. Departure - Departure Disposition: Home, Self Care Clinical Impression: Abdominal pain Qualifiers: Abdominal location: right upper quadrant Qualified Code(s): R10.11 - Right upper quadrant pain Condition: Stable Instructions: ED Abdominal Pain Female Non-Specific Abdominal Pain Follow-Up: Maida Greenwood MD [Primary Care Provider] - Prescriptions: Oxycodone HCl/Acetaminophen [Percocet 5-325 mg Tablet] 1 - 2 each PO Q6H PRN #14 tablet PRN Reason: pain Comments: Mariia, today we did not find a specific reason for your pain in the right upper quadrant. Further workup will be required to diagnose a specific condition. In the meantime I have provided some pain relief medication. Percocet has been E scribed to the [facility] in [place]. Follow-up with Maida Greenwood for further workup. Forms: Activity restrictions
[2023-05-17] MEDS: KETOROLAC 30 MG/ML VIAL IVP STA ×2 (14:54→14:55)
[2023-05-17] MEDS ORDERED: HYDROmorphone 1 MG/ML CARPUJECT IVP STA (15:53)
--- NOTE | 2023-05-17 17:03 | Ultrasound Report ---
PROCEDURE: Abdomen Limited INDICATIONS: RUQ pain stones on POCUS with tenderness TECHNIQUE: Real-time focused scanning was performed of the abdomen, with image documentation. COMPARISONS: None. FINDINGS: Liver: Increased liver echogenicity, commonly mild hepatic steatosis. Gallbladder: Unremarkable. Biliary ducts: Intrahepatic bile ducts are non-dilated. Extrahepatic bile duct caliber measures 4 m m. Normal is 6-7 mm or less in diameter, or 10 mm or less post-cholecystectomy. Pancreas: Visualized portions of the pancreas are sonographically normal. Right kidney: Normal in size and echotexture. Right kidney measures 10.9 cm long. No hydronephrosis or nephrolithiasis. No solid masses. Lobular contours with possible partially exophytic hypoechoic m ass measuring up to 2.2 cm. No complex renal cystic lesions which require follow-up. Aorta: Visualized aorta is normal in caliber at less than 3 cm. IVC: Intrahepatic inferior vena cava is patent. Miscellaneous: No free abdominal fluid. IMPRESSION: Hepatic steatosis. Lobular contours of the right kidney with possible mass, consider dedicated follow-up CT versus MRI. Reviewed by: Alex Paz MD on 05/17/2023 4:01 PM [place] Approved by: Alex Paz MD on 05/17/2023 4:01 PM AKST Station ID: [id number]
[2023-05-17] MEDS ORDERED: oxyCODONE/ACET 5/325 Prepack 4 PO STA (17:54)
[2023-05-17 18:18] VITALS: BP 137/92; O2SAT 96
== END 2023-05-17 18:19 | disposition home or self-care (01) ==
LOC: ED 13:13
DX: R10.11 Right upper quadrant pain (principal); I10 Essential (primary) hypertension
CPT/HCPCS: 36415; 76705; 80053; 81003; 81025; 83690; 85025; 96374; 96375; 99284; J1170; 81001; 87086

== ENCOUNTER 2023-10-23 16:03 | Emergency (ER) | payer MEDICAID, OTHER ==
[2023-10-23 16:32] VITALS: BP 133/75
--- NOTE | 2023-10-23 19:45 | XRAY Report ---
PROCEDURE: Humerus LT INDICATIONS: L upper arm pain TECHNIQUE: 2 views of the humerus were acquired. COMPARISON: None. FINDINGS: Bones: No acute fractures or dislocations. No suspicious bony lesions. Soft tissues: No suspicious soft tissue calcifications. IMPRESSION: No acute osseous abnormality. If there is clinical concern or persistent symptoms, additional imagin g such as repeat radiographs or advanced imaging (e.g. CT, MRI) may be helpful for further evaluation . Reviewed by: Kings Hancock MD on 10/23/2023 7:44 PM PDT Approved by: Kings Hancock MD on 10/23/2023 7:44 PM PDT Station ID: [id number]
--- NOTE | 2023-10-23 19:46 | XRAY Report ---
PROCEDURE: Shoulder 2+V LT INDICATIONS: left shoulder pain TECHNIQUE: 3 views of the shoulder were acquired. COMPARISON: None. FINDINGS: Bones: No acute fractures or dislocations. No suspicious bony lesions. Visualized ribs appear inta ct. Soft tissues: No suspicious soft tissue calcifications. The visualized lungs are within normal limi ts. IMPRESSION: No acute osseous abnormality. If there is clinical concern or persistent symptoms, additional imagin g such as repeat radiographs or advanced imaging (e.g. CT, MRI) may be helpful for further evaluation . Reviewed by: Kings Hancock MD on 10/23/2023 7:44 PM PDT Approved by: Kings Hancock MD on 10/23/2023 7:44 PM PDT Station ID: [id number]
--- NOTE | 2023-10-23 20:54 | ED Physician Documentation ---
History of Present Illness - Stated complaint Stated Complaint: NECK/SHOULDER PX - Chief complaint Chief Complaint: Trauma Ext - Additonal information Additional information: 43-year-old female with history of fibromyalgia, hypertension, asthma anxiety, presents emergency department for left shoulder pain that has been ongoing now for about a month and a half. Patient says that she` has an appointment with her primary care provider in November and feels like she is having a hard time managing her pain. Patient says that she does not like to apply ice to it because of her fibromyalgia and has only taken Tylenol at home and was wondering if she can have anything stronger. She also says that she has been taking tizanidine at home because cyclobenzaprine was did not work.There is no trauma or injury to the left shoulder she says that just kind of gradually started hurting and has increased in severity. She says that she is having more pain with any sort of abduction movement no popping or clunking sensation. PD PAST MEDICAL HISTORY - Past Medical History Cardiovascular: Hypertension, Other Respiratory: Asthma Neuro: None Endocrine/Autoimmune: None GI: None MILL OPERATOR HELPER: None : None HEENT: None Psych: Anxiety Musculoskeletal: Fibromyalgia Derm: None - Past Surgical History Past Surgical History: Yes /MILL OPERATOR HELPER: section, Oophrectomy, Other - Present Medications Home Medications: Ambulatory Orders Medication Instructions Recorded Confirmed Escitalopram [Lexapro] 10 mg PO DAILY #30 tablet 10/12/22 05/17/23 tiZANidine [Zanaflex] 4 mg PO Q8H PRN #90 tablet 10/12/22 05/17/23 ARIPiprazole [Abilify] 2.5 mg PO DAILY #20 tablet 10/28/22 05/17/23 Albuterol 2.5 mg INH Q4H PRN 10/28/22 05/17/23 Benzonatate [Tessalon] 100 mg PO TID PRN 10/28/22 05/17/23 Dicyclomine HCl 20 mg PO TID PRN 10/28/22 05/17/23 EPINEPHrine [Epinephrine] 0.3 mg IJ ONCE PRN #2 each 10/28/22 05/17/23 Fluticasone Propion/Salmeterol 1 each IH DAILY 10/28/22 05/17/23 [Advair 500-50 Diskus] Fluticasone [Flonase] 1 sprays RAKEL DAILY PRN 10/28/22 05/17/23 Gabapentin [Neurontin] 800 mg PO TID 10/28/22 05/17/23 Lisinopril [Zestril] 10 mg PO DAILY 10/28/22 05/17/23 Meloxicam 15 mg PO DAILY 10/28/22 05/17/23 Metoprolol Succinate [Toprol Xl] 25 mg PO DAILY 10/28/22 05/17/23 Multivit-Min/Folic Acid/Biotin 1 each PO DAILY 10/28/22 05/17/23 [Women Multivit W-Biotin Gummy] Prazosin [Minipress] 3 mg PO QPM 10/28/22 05/17/23 Sumatriptan Succinate [Imitrex] 100 mg PO PRN PRN 10/28/22 05/17/23 Trazodone HCl 100 mg PO HS PRN 10/28/22 05/17/23 diphenhydrAMINE [Benadryl] 25 mg PO Q4-6H PRN 10/28/22 05/17/23 hydrOXYzine HCL [Hydroxyzine HCl] 25 mg PO TID PRN 10/28/22 05/17/23 Ondansetron Odt [Zofran Odt] 4 mg TL Q6H PRN #14 tablet 03/04/23 05/17/23 Empagliflozin [Jardiance] 10 mg PO DAILY 05/17/23 05/17/23 Methylphenidate [Ritalin] 15 mg PO DAILY 05/17/23 05/17/23 Oxycodone HCl/Acetaminophen 1 - 2 each PO Q6H PRN #14 tablet 05/17/23 [Percocet 5-325 mg Tablet] - Allergies Allergies/Adverse Reactions: Allergies Allergy/AdvReac Type Severity Reaction Status Date / Time bee venom protein (honey bee) Allergy Anaphylaxis Verified 05/17/23 13:16 Sulfa (Sulfonamide Allergy Hives Verified 05/17/23 13:16 Antibiotics) - Social History Does the pt smoke?: No Smoking Status: Never smoker Does the pt drink ETOH?: No Does the pt have substance abuse?: No - Immunizations Immunizations are current?: Yes - POLST Patient has POLST: No PD ED PE NORMAL - Vitals Vital signs reviewed: Yes - General General: Alert and oriented X 3, No acute distress, Well developed/nourished - Derm Derm: Normal color, Warm and dry, No rash - Extremities Extremities: No edema, Other (Left shoulder: No swelling no tenderness to palpation, tenderness with abduction no popping or crepitus no tenderness with abduction. Strong radial pulses CMS intact.) PD ED PE EXPANDED - Neck Neck: Supple w/out meningeal sx, Soft tissue TTP. No: Brudzinki's, Kernig's, Bony TTP, Limited ROM Results - Vitals Vitals: Vital Signs - 24 hr 10/23/23 10/23/23 16:26 21:33 Temperature 36.2 C L Heart Rate 84 67 Respiratory 18 16 Rate Blood Pressure 133/75 H O2 Saturation 97 99 Oxygen O2 Source Room air - Rads (name of study) Left humerus x-ray Relevant Findings:: Final report received, EMP independent interpretation of test, Other (No acute bony abnormalities or fractures) Left shoulder x-ray Relevant Findings:: Final report received, EMP independent interpretation of test, Other (No acute bony abnormalities or fractures) PD Medical Decision Making - ED course ED course: 43-year-old female presents emergency department for left shoulder pain. X-rays are completed of her left humerus and left shoulder showed no acute bony abnormalities or fractures. Unsure what is causing this could be Adhesive capsulitis elbow patient has more movement than I am used to seeing for this diagnoses. She was placed in a shoulder sling but was told to continue to do some gentle stretching and range of motion activities to the left shoulder. She says that her neck is also sore I think this is related to trying to hold her shoulder in a certain position she is told to add Aleve to her regimen and we have given her a Toradol shot here in the emergency department to help with her pain. She is also encouraged to do some gentle range of motion stretching exercises to her neck. No fevers or chills patient given [facility] for follow-up and told to call her primary care provider to let them know about today's ER visit. Return precautions given all questions answered patient safe for discharge at this time.v Departure - Departure Disposition: 01 Home, Self Care Clinical Impression: Chronic left shoulder pain Instructions: ED Shoulder Pain [facility] Follow-Up: [facility] [Provider Group] Comments: thank you for trusting us with your care. We have given you a Toradol shot here in the emergency department to help with your pain and placed your left shoulder in a sling To help with the pain and discomfort. Please follow-up with [facility] and your primary care provider for further evaluation. Start taking 500mg Aleve every 12 hours for pain, do not take for longer than two weeks. Apply lidocaine patch to your left shoulder and do continue to do some gentle stretching of your shoulder and neck. Apply ice 20 min on one hour off. Forms: PCP List Discharge Date/Time: 10/23/23 21:33
[2023-10-23] MEDS: KETOROLAC 30 MG/ML VIAL IM STA (21:23)
[2023-10-23 21:35] VITALS: O2SAT 99
== END 2023-10-23 21:33 | disposition home or self-care (01) ==
LOC: ED 16:03
DX: M25.512 Pain in left shoulder (principal); G89.29 Other chronic pain
CPT/HCPCS: 96372; 99283; 99284

== ENCOUNTER 2023-12-04 09:15 | Outpatient (CLI) | payer OTHER ==
[2023-12-04 15:08] LABS: BASOPHILS # (AUTO) 0.1 10^3/uL (0.0-0.1); BASOPHILS % (AUTO) 1.2 %; EOSINOPHILS # (AUTO) 0.3 10^3/uL (0.0-0.7); EOSINOPHILS % (AUTO) 2.9 %; HCT - HEMATOCRIT 37.7 % (37.0-47.0); HGB - HEMOGLOBIN 12.3 g/dL (12.0-16.0); LYMPHOCYTES # (AUTO) 2.9 10^3/uL (1.5-3.5); LYMPHOCYTES % (AUTO) 28.4 %; MEAN CORPUSCULAR HEMOGLOBIN 30.8 pg (27.0-31.0); MEAN CORPUSCULAR HGB CONC 32.6 g/dL (32.0-36.0); MEAN CORPUSCULAR VOLUME 94.3 fL (81.0-99.0); MEAN PLATELET VOLUME 10.1 fL (7.9-10.8); MONOCYTES # (AUTO) 0.6 10^3/uL (0.0-1.0); MONOCYTES % (AUTO) 6.1 %; NEUTROPHILS # (AUTO) 6.1 10^3/uL (1.5-6.6); NEUTROPHILS % (AUTO) 61.1 %; PLT - PLATELET COUNT 419 10^3/uL (130-450); RED CELL DISTRIBUTION WIDTH 12.7 % (12.0-15.0)
[2023-12-04 16:04] LABS: ALBUMIN 4.5 g/dL (3.2-5.5); ALBUMIN/GLOBULIN RATIO 1.9 (1.0-2.2); BILIRUBIN,TOTAL 0.4 mg/dL (0.2-1.0); CALCIUM 9.6 mg/dL (8.5-10.3); CREATININE 0.6 mg/dL (0.6-1.3); POTASSIUM 3.9 mmol/L (3.5-4.5); TOTAL PROTEIN 6.9 g/dL (6.4-8.9)
[2023-12-04 16:14] LABS: FERRITIN 71.9 ng/mL (11.0-306.8)
[2023-12-04 20:27] LABS: ESTIMATED AVERAGE GLUCOSE 111 mg/dL (70-100); HEMOGLOBIN A1c% 5.5 % (4.27-6.07)
== END 2023-12-04 09:16 | disposition home or self-care (01) ==
LOC: LAB.S 09:15
PROVIDERS: ATTEND Nurse Practitioner
DX: F41.1 Generalized anxiety disorder (principal); F31.81 Bipolar II disorder; I10 Essential (primary) hypertension
CPT/HCPCS: 36415; 80053; 82607; 82728; 82746; 83036; 84443; 85025